=== PATIENT | male | born 1975 | race Hispanic/Latino ===

== ENCOUNTER 2019-11-10 09:15 | Inpatient (IN) | payer SELFPAY ==
[~2019-11-10] VITALS: Ht 157.5 cm; Wt 63.6 kg
[2019-11-10] VITALS (7 sets, daily range): BP systolic 98–117; BP diastolic 54–67
--- NOTE | 2019-11-10 09:39 | NUR ---
PATIENT TO ROOM VIA WHEELCHIAR.
--- NOTE | 2019-11-10 10:29 | NUR ---
IV INITATIED AND LABS COLLECTED. PT TOLERATED WELL. LAB AT BEDSIDE TO DRAW FOR 2ND BC.
[2019-11-10 10:48] LABS: HEMATOCRIT 41.8 % (39.0-50.0); HEMOGLOBIN 13.9 g/dl (14.0-18.0); IMMATURE GRANULOCYTES 0.5 % (0.0-5.0); MEAN CELL VOLUME 89.3 fL CALC (80.0-100.0); MEAN CORPUSCULAR HGB 29.7 pG CALC (26.0-32.0); MEAN CORPUSCULAR HGB CONC 33.3 g/dL CAL (32.0-36.0); NEUT# 15.86 thou/uL (1.82-7.42); RED BLOOD COUNT 4.68 mill/uL (4.70-6.10); RED CELL DISTRI WIDTH 12.7 % (11.5-15.5)
--- NOTE | 2019-11-10 11:00 | NUR ---
PATIENT AWARE OF PLAN FOR CT SCAN AND WAIT TIME. IV FLUIDS AND ABX INFUSING. CALL VASYL CARRILLO. VSS.
[2019-11-10 11:16] LABS: ALBUMIN 4.3 g/dL (3.2-5.0); ALKALINE PHOSPHATASE 139 u/l (38-126); ANION GAP 15 (6-22 (CALC)); BILIRUBIN, TOTAL 1.3 mg/dL (0.0-1.4); BUN 8 mg/dL (9-20); BUN/CREATININE RATIO 17 (12-20 (CALC)); CARBON DIOXIDE 27 mmol/l (22-30); CHLORIDE 93 mmol/l (95-108); CREATININE 0.5 mg/dL (0.7-1.3); GFR > 60 ML/MIN (>=60 (CALC)); GFR FOR AFR.AMER. > 60 ML/MIN (>=60 (CALC)); SGOT/AST 18 u/l (17-59); SODIUM 130 mmol/l (137-146); TOTAL PROTEIN 7.7 g/dL (6.3-8.2)
--- NOTE | 2019-11-10 12:45 | NUR ---
PT RESTING IN STRETCHER IN NAD AND DENIES ANY NEEDS AT THIS TIME. IV VANCO INFUSING WITH NO DIFFICULTY.
--- NOTE | 2019-11-10 13:11 | NUR ---
MD AT BEDSIDE TO DISCUSS RESULTS AND PLAN FOR ADMISSION.
--- NOTE | 2019-11-10 13:40 | NUR ---
Dr Merida at bedside to examine pt
--- NOTE | 2019-11-10 14:00 | NUR ---
TEMP RECHECK 99.3.
--- NOTE | 2019-11-10 14:10 | NUR ---
MARIVEL THORNTON FROM OR AT BEDSIDE. PT REPORT GIVEN.
--- NOTE | 2019-11-10 14:30 | NUR ---
PT ARRIVED TO THE MED/SURG FROM THE PACU VIA STRETCHER. GOT REPORT FROM CAROL ORTA. PT SELF AMBULATED TO BED FROM STRETCHER. V/S ASSESSED PT INSTRUCTED TO CALL SYSTEM, LIGHTS BED AND IV. URINAL AT BEDSIDE,BUT PT INSTRUCTED TO CALL PRIOR TO AMBULATING IF HE NEEDS TO GET UP. PT VERBALIZED THROUGH COMMUNICATIONS SCIENTIST THAT HE UNDERSTOOD. PT ASSESSMENT COMPLETE. PT IS ALERT AND ORIENTED. LUNGS CLEAR. TEMPERATURE REPORTED AT102.2 F EARLIER IN THE ER AND RECEIVED IV TYLENOL. PT REASSESSED AND AFEBRILE AT 98.5. RECTAL WOUND REINFORCED WITH ABD PAD. MO RESTING COMFORTABLE. WILL CONTINUE TO MONITOR.
--- NOTE | 2019-11-10 14:50 | NUR ---
PATIENT REPORT TO MARIVEL RIVERA.
--- NOTE | 2019-11-10 19:25 | NUR ---
RECIEVED REPORT FROM MARIVEL RIVERA. PT RESTING IN SEMI FOWLERS POSITION UPON ENTERING ROOM. INTRODUCED SLEF TO PT AND DISCUSSED POC. PT IS SWAZI SPEAKING ONLY. RESPIRATIONS ARE EVEN AND UNLABORED WITH NO SIGNS OF DISTRESS. PT DENIES ANY PAIN OR DISCOMFORTS AT THIS TIME.ALL SAFETY PRECAUTIONS ARE IN PLACE WITH CALL LIGHT IN REACH. WILL CONTINUE TO MONITOR
[2019-11-11] VITALS (10 sets, daily range): BP systolic 90–113; BP diastolic 46–68
--- NOTE | 2019-11-11 00:38 | NUR ---
PT RESTING IN BED WITH EYES CLOSED. NO APPARENT DISTRESS NOTED. PT WAKES EASILY, DENIES ANY PAIN OR DISCOMFORT AT THIS TIME. CALL LIGHT WITHIN REACH. WILL CONTINUE TO MONITOR.
--- NOTE | 2019-11-11 04:38 | NUR ---
PT RESTING IN BED. NO APPARENT DISTRESS NOTED. IVF INFUSING WITHOUT DIFFICULTY. PT DENIES ANY PAIN OR DISCOMFORT. CALL LIGHT WITHIN REACH. WILL CONTINUE TO MONITOR.
[2019-11-11 05:39] LABS: IMMATURE GRANULOCYTES 0.6 % (0.0-5.0); MEAN CELL VOLUME 92.1 fL CALC (80.0-100.0); MEAN CORPUSCULAR HGB 30.1 pG CALC (26.0-32.0); MEAN CORPUSCULAR HGB CONC 32.6 g/dL CAL (32.0-36.0); NEUT# 11.34 thou/uL (1.82-7.42); RED BLOOD COUNT 3.56 mill/uL (4.70-6.10); RED CELL DISTRI WIDTH 13.1 % (11.5-15.5)
[2019-11-11 05:55] LABS: HEMATOCRIT 32.8 % (39.0-50.0); HEMOGLOBIN 10.7 g/dl (14.0-18.0)
--- NOTE | 2019-11-11 07:25 | NUR ---
PT LAYING IN BED. A&O X3. NO DISTRESS NOTED. PT DENIES ANY CURRENT PAIN AT THIS TIME. ABD PAD SURROUNDING PERIANAL WOUND CDI WITH NO SHADOWING PRESENT. EXPLAINED TO PT THAT HE WAS SCHEDULED TO GO DOWN TO OR TO HAVE WOUND CLEANED. PT VERBALIZED UNDERSTANDING. OR CONSENT OBTAINED. IS DEVICE AT BEDSIDE. PT DEMONSTRATING PROPER USE OF DEVICE. GOAL SET AT 2500 PT CURRENTLY ACHIEVING 2000. SCDS IN PLACE. PT SLIGHTLY HYPOTENSIVE BUT ASYMPTOMATIC AT THIS TIME. ASSESSMENT COMPLETED. DISCUSSED POC. CALL LIGHT IN REACH. CONTINUE TO MONITOR.
--- NOTE | 2019-11-11 09:42 | NUR ---
PT TAKEN VIA STRETCHER TO OR ACCOMPANIED BY JORDAN ORTA. PT IN STABLE CONDITION.
--- NOTE | 2019-11-11 12:00 | NUR ---
PT ARRIVED TO PA VIA STRETCHER ACCOMPANIED BY FRANSISCA ORTA. A&O X3. NO DISTRESS NOTED. PT REPORTS PAIN IN PERIANAL AREA. WOUND VAC IN PLACE SET AT 125 MM HG CONTINUOUS WITH SANGUINEOUS DRAINAGE NOTED TO WOUND VAC COLLECTION CHAMBER. PT ENCOURAGED TO NOT LAY ON SIDE TO ASSIST WITH THE PROPER FUNCTION OF THE WOUND VAC, PT VERBALIZED UNDERSTANDING. SCDS BILATERALLY IN PLACE. CALL LIGHT IN REACH. CONTINUE TO MONITOR.
--- NOTE | 2019-11-11 13:52 | NUR ---
PT LAYING IN BED. NO DISTRESS NOTED, NO NEEDS AT THIS TIME. CALL LIGHT IN REACH. CONTINUE TO MONITOR.
--- NOTE | 2019-11-11 16:15 | NUR ---
AFTER MULTIPLE FAILED ATTEMPTS TO MAINTAIN PROPER WOUND VAC SEAL, WOUND VAC REMOVED PER DR LACY'S WRITEN ORDERS. LESS THAN 50 CC OUT OUTPUT NOTED TO WOUND VAC COLLECTION CHAMPER. WOUNDS PACKED WITH GAUZE AND SECURED WITH ABD PAD AND MESH UNDERWEAR.PT TOLERATED WELL. ASSISTED PT TO COMFORTABLE POSITION. CALL LIGHT IN REACH. CONTINUE TO MONITOR.
--- NOTE | 2019-11-11 19:10 | NUR ---
REPORT FROM MAGDALENA RN. PT NOTED RESTING IN BED, WAKES EASILY. PT DENIES ANY PAIN OR DISCOMFORT. CRYSTAL VP CLINICAL TO TRANSLATE. PT WANTING TO KNOW WHEN HE CAN GO HOME, EDUCATED PT ON NEED FOR DRESSING CHANGES AND ABT THERAPY. DISCUSSED POC. PT VERBALIZED UNDERSTANDING. PT DENIES ANY CURRENT WANTS OR NEEDS. DRESSING CDI. CALL LIGHT WITHIN REACH. WILL CONTINUE TO MONITOR.
--- NOTE | 2019-11-11 23:56 | NUR ---
PT MEDICATED FOR PAIN AND REPOSITIONED. ICE PACK PROVIDED. DRESSING REMAINS CDI. IVF INFUSING WITHOUT DIFFICULTY. PT DENIES ANY OTHER WANTS OR NEEDS. CALL LIGHT WITHIN REACH. WILL CONTINUE TO MONITOR.
--- NOTE | 2019-11-12 03:03 | NUR ---
PT RESTING IN BED WITH EYES CLOSED. NO APPARENT DISTRESS NOTED. RESPIRATIONS EVEN AND UNLABORED. CALL LIGHT WITHIN REACH. WILL CONTINUE TO MONITOR.
[2019-11-12 05:08] VITALS: BP 102/60
--- NOTE | 2019-11-12 05:14 | NUR ---
PT MEDICATED FOR PAIN UPON REQUEST. DRESSING SATURATED WITH COPIOUS AMOUNT SEROUS DRAINAGE. DRESSING CHANGE PER ORDER. PT TOLERATED WELL. ICE PACK PROVIDED AT THIS TIME. NO APPARENT DISTRESS NOTED. PT DENIES ANY OTHER WANTS OR NEEDS. CALL LIGHT WITHIN REACH. WILL CONTINUE TO MONITOR.
[2019-11-12 07:40] VITALS: BP 113/68
--- NOTE | 2019-11-12 07:40 | NUR ---
PT SITTING IN BED. A&O X3. NO DISTRESS NOTED. NO PAIN REPORTED AT THIS TIME. DRESSING TO INTERGLUTEAL CLEFT IN PLACE WITH SLIGHT SHADOWING NOTED. IS DEVICE AT BEDSIDE WITH GOAL REMAINING AT 2500, PT ACHIEVING 2000. NO OTHER NEEDS AT THIS TIME. ASSESSMENT COMPLETED. DISCUSSED POC. CALL LIGHT IN REACH. CONTINUE TO MONITOR.
[2019-11-12 11:08] VITALS: BP 118/87
--- NOTE | 2019-11-12 11:18 | NUR ---
DR LACY AT BEDSIDE COMPLETING DRESSING CHANGE
--- NOTE | 2019-11-12 12:05 | NUR ---
PT SITTING IN BED. NO DISTRESS OR NEEDS AT THIS TIME. CALL LIGHT IN REACH. CONTINUE TO MONITOR.
[2019-11-12 15:15] VITALS: BP 143/83
--- NOTE | 2019-11-12 17:34 | NUR ---
PT LAYING IN BED. NO DISTRESS OR NEEDS AT THIS TIME. DRESSING CDI. CALL LIGHT IN REACH. CONTINUE TO MONITOR.
--- NOTE | 2019-11-12 19:03 | NUR ---
REPORT FROM MAGDALENA ORTA. PT NOTED RESTING IN BED. NO APPARENT DISTRESS NOTED. PT C/O PAIN IN PERIANAL AREA. MEDICATED AT THIS TIME AND ICE PACK PROVIDED. PT ENCOURAGED TO REPOSITION SELF IN BED WELL. DRESSING TO BUTTOCKS, CDI. IV SITE APPEARS HEALTHY. DISCUSSED POC AND NPO AFTER MIDNIGHT. PT VERBALIZED UNDERSTANDING. PT DENIES ANY OTHER WANTS OR NEEDS. CALL LIGHT WITHIN REACH. WILL CONTINUE TO MONITOR.
[2019-11-12 19:28] VITALS: BP 142/62
--- NOTE | 2019-11-12 20:56 | NUR ---
PT CONTINUES TO C/O PAIN IN PERIANAL AREA. MEDICATED WITH PRN PERCOCET AT THIS TIME. PT REPOSITIONED SELF IN BED. DRESSING REMAINS CDI. FRESH WATER PROVIDED. NO OTHER WANTS OR NEEDS. CALL LIGHT WITHIN REACH. WILL CONTINUE TO MONITOR.
--- NOTE | 2019-11-12 23:48 | NUR ---
PT MEDICATED FOR PAIN IN PERIANAL AREA 12/29. ICE PACKS PROVIDED. PT REPOSITIONED SELF. DENIES ANY OTHER WANTS OR NEEDS. CALL LIGHT WITHIN REACH. WILL CONTINUE TO MONITOR.
[2019-11-13] VITALS (10 sets, daily range): BP systolic 112–139; BP diastolic 60–82
[2019-11-13 05:43] LABS: HEMATOCRIT 32.8 % (39.0-50.0); HEMOGLOBIN 10.8 g/dl (14.0-18.0); IMMATURE GRANULOCYTES 0.6 % (0.0-5.0); MEAN CELL VOLUME 89.9 fL CALC (80.0-100.0); MEAN CORPUSCULAR HGB 29.6 pG CALC (26.0-32.0); MEAN CORPUSCULAR HGB CONC 32.9 g/dL CAL (32.0-36.0); NEUT# 6.07 thou/uL (1.82-7.42); RED BLOOD COUNT 3.65 mill/uL (4.70-6.10); RED CELL DISTRI WIDTH 12.6 % (11.5-15.5)
--- NOTE | 2019-11-13 06:16 | NUR ---
PT MEDICATED FOR PAIN. DRESSING CHANGED PER ORDER. PT C/O LARGE AMOUNTS OR PAIN WITH DRESSING CHANGE EVEN WITH MEDICATION PRIOR. ICE PACK PROVIDED AND REPOSITIONED FOR COMFORT AT THIS TIME. PACKING REMOVED NOTED TO HAVE FOUL ODOR WITH PURULENT DRAINAGE. MODERATE AMOUNT OF DRAINAGE NOTED TO ABD PAD. PT DENIES ANY CURRENT WANTS OR NEEDS. IVF INFUSING WITHOUT DIFFICULTY. PT REMAINS NPO. CALL LIGHT WITHIN REACH. WILL CONTINUE TO MONITOR.
--- NOTE | 2019-11-13 07:15 | NUR ---
PT LAYING IN BED. A&O X3. NO DISTRESS NOTED. PT DENIES ANY CURRENT PAIN AT THIS TIME. DRESSING CDI NO SHADOWING PRESENT. BILATERAL SCDS IN PLACE. IS DEVICE AT BEDSIDE, GOAL CONTINUES TO BE AT 2500, PT ACHIEVING 2000. ASSESSMENT COMPLETED. DISCUSSED POC. CALL LIGHT IN REACH. CONTINUE TO MONITOR.
--- NOTE | 2019-11-13 08:00 | NUR ---
PT note Patient is screened for PT intervention and no needs are identified at this time
--- NOTE | 2019-11-13 08:39 | NUR ---
OR CONSENT OBTAINED
--- NOTE | 2019-11-13 12:38 | NUR ---
PT TAKEN VIA STRETCHER TO OR ACCOMPANIED BY ERROL ORTA. PT IN STABLE CONDITION
--- NOTE | 2019-11-13 17:13 | NUR ---
PT DENIES ANY PAIN AT THIS TIME. CALL LIGHT IN REACH. CONTIUE TO MONITOR.
--- NOTE | 2019-11-13 19:00 | NUR ---
REPORT RECIEVED FROM Cha CHAVEZ RN, CARE OF PT ASSUMED AT THIS TIME.
--- NOTE | 2019-11-13 19:50 | NUR ---
PT C/O THROBBING PAIN TO RANDY-RECTAL SURGICAL SITE, 09/28. MEDICATED WITH PRN DILAUDID AND ZOFRAN, SEE E-MAR. PHYSICAL ASSESMENT COMPLETE. DRESSING TO RANDY-RECTAL SITE IS CLEAN/DRY/INTACT. 900ML CLEAR YELLOW URINE EMPTIED FROM URINAL. TV DINNER TRAY PROVIDED PER PTS REQUEST. PT DENIES FURTHER NEEDS. PLAN OF CARE REVIEWED. PT VERBALIZES UNDERSTANDING AND DENIES QUESTIONS. CALL [place] WITHIN REACH, AGREES TO CALL PRN.
--- NOTE | 2019-11-13 23:30 | NUR ---
ADMINISTERED PRN DILAUDID FOR C/O THROBBING PAIN TO RANDY-RECTAL SURGICAL SITE. SEE E-MAR. EMPTIED 400ML CLEAR YELLOW URNINE FROM URINAL. PT DENIES FURTHER NEEDS AT THIS TIME. CALL [place] WITHIN REACH, AGREES TO CALL PRN.
[2019-11-14] VITALS (11 sets, daily range): BP systolic 105–144; BP diastolic 48–85
--- NOTE | 2019-11-14 04:35 | NUR ---
PRE-MEDICATED WITH PERCOCET, THEN DILAUDID, SEE E-MAR. OLD DRESSING/PACKING SATURATED WITH SALINE FOR COMFORT AND GENTLY REMOVED. REMOVAL OF PACKING CAUSES NEW BLEEDING. MODERATE AMOUNT BLOODY DRAINAGE NOTED. 75" OF 1" GAUZE ROLL LIGHLTY DAMPENED WITH STERILE SALINE PACKED INTO WOUND ON RIGHT BUTTOCK. X1 4X4 GAUZE LIGHTLY DAMPENED WITH STERILE SALINE AND FLUFFED PACKED INTO LEFT WOUND ON BUTTOCK. X3 ABD PADS PLACED OVERTOP FOR DRAINAGE MANAGMENT AND SECURED BY MESH BRIEF. ICE PACK APPLIED X20 MINUTES FOR COMFORT. PT TOLERATED DRESSING, REPORTS DRESSING IS VERY PAINFUL.
--- NOTE | 2019-11-14 06:10 | NUR ---
PTS DRESSING NOTED TO HAVE A LARGE AMOUNT OF SANGUIONOUS DRAINAGE AND CLOTS. SATURATED ABD PADS REMOVED. THIN STREAM OF BLOOD BEGINS TO SHOOT OUT ONTO BED. PRESSURE IMMEDIATELY APPLIED. ASSIST CALLED. SCIENTIFIC INFORMATICS ANALYST Danyel LAWLER RN IN AND HOLDS PRESSURE. DR. WHITMAN CALLED AND INFORMED OF ACTIVE BLEEDING. ORDER IS TO KEEP NPO. PT HAS NOT EATEN SINCE DINNER. REPORTS NO DRINKING SINCE ABOUT MIDNIGHT. DR. LACY CALLS Danyel LAWLER RN TO SCHEDULE PT FOR OR. BULKY PRESSUREDRESSING APPLIED. BLEEDING SEEMS TO HAVE SLOWED WITH APPLIED PRESSURE. ICE PACK APPLIED. EBL APPROX 350ML. PT ABLE TO PARTICIPATE IN CARE. NO DISTRESS. REPORTS SOME DISCOMFORT.
[2019-11-14 06:43] LABS: HEMATOCRIT 32.8 % (39.0-50.0); HEMOGLOBIN 10.8 g/dl (14.0-18.0); IMMATURE GRANULOCYTES 0.7 % (0.0-5.0); MEAN CELL VOLUME 88.9 fL CALC (80.0-100.0); MEAN CORPUSCULAR HGB 29.3 pG CALC (26.0-32.0); MEAN CORPUSCULAR HGB CONC 32.9 g/dL CAL (32.0-36.0); NEUT# 5.57 thou/uL (1.82-7.42); RED BLOOD COUNT 3.69 mill/uL (4.70-6.10); RED CELL DISTRI WIDTH 12.4 % (11.5-15.5)
--- NOTE | 2019-11-14 06:45 | NUR ---
PT DOWN TO OR ON STRETCHER.
--- NOTE | 2019-11-14 07:00 | NUR ---
REPORT RECEIVED FROM MARIVEL CONKLIN;PT CURRENTLY IN OR AT THIS TIME.
--- NOTE | 2019-11-14 08:29 | NUR ---
PT ARRIVED BACK TO MED/SURG ROOM 274 IN STABLE CONDITION VIA STRETCHER ACCOMPANIED BY SAMANTHARN;BEDSIDE REPORT RECEIVED AT THIS TIME;VS OBTAINED BY CHARU CARNEY;PT A&O X3, ORIENTED TO ROOM AND CALL LIGHT SYSTEM;PT DENIES ANY CURRENT PAIN,PAIN SCALE AND REPORTING EDUCATED;RESPIRATIONS EVEN AND UNLABORED ON RA,CLEAR LUNG SOUNDS;I.S. AT BEDSIDE AND PT EDUCATED ON USE 10X PER HOUR;ABDOMEN DISTENDED/SOFT ON PALPATION AND HYPOACTIVE IN ALL 4 QUADRANTS;DRESSING TO RECTUM,CDI AT THIS TIME WITH MESS PANTIES IN PLACE;STRONG PEDAL PULSES,SCD'S NOTED;#18G TO RAC FLUSHED AND PATENT,NEW DRESSING APPLIED AT THIS TIME;WATER PROVIDED PER REQUEST;PT DENIES ANY ADDITIONAL NEEDS AT THIS TIME;ENCOURAGED TO CALL FOR ASSISTANCE IF NEEDED;FALL PRECAUTIONS IN PLACE WITH BED IN THE LOWEST POSITION AND CALL LIGHT IN REACH;WILL CONTINUE TO MONITOR
--- NOTE | 2019-11-14 10:00 | NUR ---
ACCUCHECK OF 338 OBTAINED, PT COVERED WITH NOVOLIN 10 UNITS PER ORDER.TOM JACKSON TRANSLATED EDUCATION OF INSULIN AND ACCUCHECKS TO PT WHO VERBALIZED UNDERSTANDING;WILL CONTINUE TO MONITOR
--- NOTE | 2019-11-14 11:35 | NUR ---
PT RESTING IN SEMI FOWLERS POSITION;RESPIRATIONS REMAIN EVEN AND UNLABOED ON RA;PT DENIES ANY CURRENT PAIN OR DISCOMFORTS;IV ABX STARTED AT THIS TIME;ACCUCHECK 300, PT COVERED WITH SLIDING SCALE NOVOLOG PER ORDER;DRESSING TO RECTUM REMAINS CDI;ASSESSMENT REMAINS UNCHANGED AT THIS TIME;ENCOURAGED TO CALL FOR ASSISTANCE IF NEEDED;CALL LIGHT IN REACH;WILL CONTINUE TO MONITOR
--- NOTE | 2019-11-14 15:45 | NUR ---
PT RESTING IN SEMI FOWLERS POSITION;RESPIRATIONS EVEN AND UNLABORED ON RA;PT DENIES ANY CURRENT PAIN OR DISCOMFORTS;TELE MONITORING IN PLACE;IV SITE PATENT;TRANSLATION PROVIDED BY MARIVEL NICHOLS;PT DENIES ANY ADDITIONAL NEEDS AND IS ENCOURAGED TO CALL FOR ASSISTANCE IF NEEDED;CALL LIGHT IN REACH;WILL CONTINUE TO MONITOR
--- NOTE | 2019-11-14 18:12 | NUR ---
PT RESTING IN SEMI FOWLERS POSITION;RESPIRATIONS EVEN AND UNLABORED ON RA;PT REPORTS MINIMAL PAIN AT THIS TIME,PT MEDICATED WITH PRN DILAUDID 1MG IVP PRIOR TO DRESSING CHANGE,ABX ALSO HUNG AT THIS TIME;DRESSING REMOVED TO RECTAL AREA WITH MODERATE AMOUNT OF LIGHT BLOOD TINGED DRAINAGE, SITE CLEANSED WITH SALINE AND MOIST/DRY DRESSING APPLIED AND ENFORCED WITH ABD PADS;PT TOLERATED DRESSING CHANGE WELL REPORTING MINIMAL PAIN THROUGHOUT PROCESS;PT RE-POSITIONED IN BED FOR COMFORT;PT DENIES ANY ADDITIONAL NEEDS;WILL CONTINUE TO MONITOR
--- NOTE | 2019-11-14 20:55 | NUR ---
PT RESTING IN BED, NO SIGNS OF DISTRESS NOTED, RESP EVEN AND UNLABORED. PT ALERT AND ORIENTED X3, DISCUSSED POC, PT GABONESE SPEAKING ONLY, AUTOMOTIVE QUALITY ENGINEER SPEAKS GABONESE. PT C/O PAIN MEDICATED PER MAR, DISCUSSED INSULIN, EDUCATED ON WOUND HEALING AND DIABETES, DRESSING TO BUTTOCK CDI, ASSESSMENT COMPLETED, CALL LIGHT IN REACH,CONTINUE TO MONITOR.
[2019-11-15 00:10] VITALS: BP 92/45
--- NOTE | 2019-11-15 00:26 | NUR ---
PT RESTING IN BED, NO SIGNS OF DISTRESS NOTED, PT DISCUSSED DRESSING CHANGE, PT AGREES. DRESSING CHANGE COMPLETED PT TOLERATED WELL. CALL LIGHT IN REACH,CONTINUE TO MONITOR.
[2019-11-15 03:35] VITALS: BP 108/63
--- NOTE | 2019-11-15 05:00 | NUR ---
PT RESTING IN BED, LINENS CHANGED. PT C/O PAIN, MEDICATED PER MAY. CALL LIGHT IN REACH,CONTINUE TO MONITOR.
[2019-11-15 05:04] LABS: HEMOGLOBIN 9.8 g/dl (14.0-18.0); MEAN CELL VOLUME 90.1 fL CALC (80.0-100.0); MEAN CORPUSCULAR HGB 29.4 pG CALC (26.0-32.0); MEAN CORPUSCULAR HGB CONC 32.7 g/dL CAL (32.0-36.0); RED BLOOD COUNT 3.33 mill/uL (4.70-6.10); RED CELL DISTRI WIDTH 12.6 % (11.5-15.5)
[2019-11-15 05:46] LABS: ANION GAP 11 (6-22 (CALC)); BUN 9 mg/dL (9-20); BUN/CREATININE RATIO 15 (12-20 (CALC)); CARBON DIOXIDE 29 mmol/l (22-30); CHLORIDE 99 mmol/l (95-108); CREATININE 0.6 mg/dL (0.7-1.3); GFR > 60 ML/MIN (>=60 (CALC)); GFR FOR AFR.AMER. > 60 ML/MIN (>=60 (CALC)); MAGNESIUM 2.2 mg/dL (1.6-2.3); POTASSIUM 3.7 mmol/l (3.5-5.1); SODIUM 136 mmol/l (137-146)
--- NOTE | 2019-11-15 07:00 | NUR ---
REPORT RECEIVED FROM HELLEN PINA;PT APPEARS TO BE SLEEPING IN SEMI FOWLERS POSITION;RESPIRATIONS EVEN AND UNLABORED ON RA;NO S/S OF DISTRESS NOTED;ALL SAFETY PRECAUTIONS IN PLACE WITH BED IN THE LOWEST POSITION AND CALL LIGHT IN REACH;WILL CONTINUE TO MONITOR
[2019-11-15 07:49] VITALS: BP 109/63
--- NOTE | 2019-11-15 07:50 | NUR ---
PT RESTING IN SEMI FOWLERS POSITION,A&O X3;VS OBTAINED AND ASSESSMENT COMPLETED;PT REPORTS MINIMAL PAIN TO PERIRECTAL AREA RATING 3/10 ON THE PAIN SCALE, PAIN SCALE AND REPORTING EDUCATED;PT WAS MEDICATED AT THIS TIME WITH DILAUDID 1MG IVP TO ASSIST IN DRESSING CHANGE;RESPIRATIONS EVEN AND UNLABORED ON RA,CLEAR LUNG SOUNDS;I.S. AT BEDSIDE AND PT RE-EDUCATED ON USE VERBALIZING UNDERSTANDING;ABDOMEN DISTENDED/SOFT ON PALPATION AND ACTIVE IN ALL 4 QUADRANTS, LAST BM 11/09/19 AND ALONSO ANRP WAS NOTIFIED;STRONG PEDAL PULSES;DRESSING TO RANDY RECTAL AREA REMOVED AT THIS TIME, MODERATE AMOUNT OF BLOOD NOTED TO PACKING,SITE CLEANSED WITH SALINE AND MOIST/DRY PACKING RE-APPLIED;PT TOLERATED WELL;#18G TO LAC FLUSHED AND PATENT,SITE APPEARS HEALTHY;ACCUCHECK 213, PT COVERED WITH SLIDING SCALE NOVOLOG PER ORDER;PT MADELINE ANY ADDITIONAL NEEDS AND IS ENCOURAGED TO CALL FOR ASSISTANCE IF NEEDED;FALL PRECAUTIONS IN PLACE WITH CALL LIGHT IN REACH;WILL CONTINUE TO MONITOR
[2019-11-15] MEDS ORDERED: METFORMIN500 M2 PO (10:45)
[2019-11-15] MEDS ORDERED: JARDIANCE10 MG PO (10:45)
--- NOTE | 2019-11-15 11:30 | NUR ---
PT RESTING IN SEMI FOWLERS POSITION;RESPIRATIONS EVEN AND UNLABORED ON RA;PT DENIES ANY CURRENT PAIN OR NEEDS;ACCUCHECK 233, PT COVERED WITH SLIDING SCALE NOVOLOG PER ORDER;NEW #22G TO LFA STARTED AT THIS TIME ON 1ST ATTEMPT BY THIS WRITTER,PT TOLERATED WELL AND ABX STARTED PER ORDER;#18G TO RAC REMOVED WITH CATHETER INTACT DUE TO EXPIRATION;DRESSING TO RANDY RECTAL AREA REMAINS CDI;PT MEDICATED WITH COLACE AND MOM TO ASSIST IN BOWEL CARE,LAST BM 11/09/19;PT DENIES ANY ADDITIONAL NEEDS AT THIS TIME AND IS ENOCURAGED TO CALL FOR ASSISTANCE IF NEEDED;CALL LIGHT IN REACH;WILL CONTINUE TO MONITOR
[2019-11-15 15:23] VITALS: BP 116/77
--- NOTE | 2019-11-15 16:20 | NUR ---
PT RESTING IN SEMI FOWLERS POSITION;RESPIRATIONS REMAIN EVEN AND UNLABORED ON RA;PT REPORTS RANDY RECTAL PAIN RATING 4/10 ON THE PAIN SCALE AND WAS MEDICATED WITH PRN DILAUDID 0.5MG IVP PRIOR TO DRESSING CHANGE;IV SITE PATENT;RANDY RECTAL DRESSING REMOVED WITH SMALL AMOUNT OF BLOOD TINGED DRAINAGE NOTED,SITE CLEANSED WITH SALINE AND MOIST/DRY DRESSING RE-APPLIED PER ORDER;PT TOLERATED WOUND CARE WELL;ACCUCHECK 261, PT COVERED WITH SLIDING SCALE NOVOLOG PER ORDER;TRANSLATION PROVIDED BY STACEY OR SANJEEV;PT DENIES ANY ADDITIONAL NEEDS AT THIS TIME AND IS ENCOURAGED TO CALL FOR ASSISTANCE IF NEEDED;CALL LIGHT IN REACH;WILL CONTINUE TO MONITOR
--- NOTE | 2019-11-15 17:35 | NUR ---
PT REPORTS RANDY RECTAL PAIN RATING 6/10 ON THE PAIN SCALE AND REQUESTS PAIN MEDICATION,PT MEDICATED WITH PRN PEROCET 5/325MG PO AT THIS TIME;WILL MONITOR FOR EFFECTIVENESS
[2019-11-15 19:00] VITALS: BP 112/53
--- NOTE | 2019-11-15 19:05 | NUR ---
REPORT FROM ABELARDO MACEDO. PT NOTED RESTING IN BED. ALERT AND ORIENTED. NO APPARENT DISTRESS NOTED. PT DENIES ANY PAIN OR DISCOMFORT AT THIS TIME. IV SITE APPEARS HEALTHY. RESPIRATIONS EVEN AND UNLABORED. DRESSING TO BUTTOCKS SECURED IN PLACE WITH BRIEF, CDI. DISCUSSED POC AND DRESSING CHANGE PROCEDURE, PT VERBALIZED UNDERSTANDING. NO CURRENT WANTS OR NEEDS NOTED. CALL LIGHT WITHIN REACH. WILL CONTINUE TO MONITOR.
--- NOTE | 2019-11-15 19:08 | NUR ---
REPORT FROM ABELARDO MACEDO. PT NOTED RESTING IN BED WATCHING TV. ALERT AND ORIENTED. NO APPARENT DISTRESS NOTED. IV SITE APPEARS HEALTHY AND PATENT, FLUSHED AT THIS TIME. PT SOB WITH EXERTION AND COUGH. DISCUSSED POC. PT VERBALIZED UNDERSTANDING. PT DENIES ANY CURRENT WANTS OR NEEDS. CALL LIGHT WITHIN REACH. WILL CONTINUE TO MONITOR.
--- NOTE | 2019-11-15 21:17 | NUR ---
PT MEDICATED FOR PERIANAL PAIN WITH IV DILAUDID. NO APPARENT DISTRESS NOTED. RESPIRATIONS EVEN AND UNLABORED. PT RESTING ON LEFT SIDE. DRESSING SECURED WITH BRIEF, CDI. PT DENIES ANY OTHER CURRENT WANTS OR NEEDS. DIABETIC SNACK PROVIDED AT THIS TIME. CALL LIGHT WITHIN REACH. WILL CONTINUE TO MONITOR.
--- NOTE | 2019-11-16 00:20 | NUR ---
PT C/O SMALL AMOUNT OF PAIN AT THIS TIME. MEDICATED FOR PAIN PRIOR TO DRESSING CHANGE. PT DENIES ANY CURRENT WANTS OR NEEDS. CALL LIGHT WITHIN REACH. WILL CONTINUE TO MONITOR.
--- NOTE | 2019-11-16 00:49 | NUR ---
DRESSING CHANGED PER ORDER. PT TOLERATED WELL. BEFORE AND AFTER SCHOOL DAYCARE WORKER CASSIE TO TRANSLATE. DRESSING SECURED WITH BRIEF. REPOSITIONED FOR COMFORT. PT DENIES ANY CURRENT PAIN OR DISCOMFORT. CALL LIGHT WITHIN REACH. WILL CONTINUE TO MONITOR.
--- NOTE | 2019-11-16 04:08 | NUR ---
PT RESTING IN BED WITH EYES CLOSED. NO APPARENT DISTRESS NOTED. RESPIRATIONS EVEN AND UNLABORED. CALL LIGHT WITHIN REACH. WILL CONTINUE TO MONITOR.
[2019-11-16 04:54] VITALS: BP 122/86
--- NOTE | 2019-11-16 07:00 | NUR ---
REPORT RECEIVED FROM HELLEN PEREZ;PT APPEARS TO BE SLEEPING IN SEMI FOWLERS POSITION;RESPIRATIONS EVEN AND UNLABORED ON RA;NO S/S OF DISTRESS NOTED;ALL SAFETY PRECAUTIONS IN PLACE WITH BED IN THE LOWEST POSITION AND CALL LIGHT IN REACH;WILL CONTINUE TO MONITOR
--- NOTE | 2019-11-16 07:35 | NUR ---
PT RESTING IN SEMI FOWLERS POSITION,A&O X3;VS OBTAINED AND ASSESSMENT COMPLETED;PT REPORTS MINIMAL PAIN AT THIS TIME,PAIN SCALE AND REPORTING EDUCATED;PT TO BE MEDICATED WITH PRN DILAUDID 1MG IVP PRIOR TO DRESSING CHANGED;RESPIRATIONS EVEN AND UNLABORED ON RA,CLEAR LUNG SOUNDS;I.S. AT BEDSIDE AND PT EDUCATED ON USE 10X PER HOUR;ABDOMEN DISTENDED/SOFT ON PALPATION AND ACTIVE IN ALL 4 QUADRANTS,LAST BM 11/09/19;COLACE WAS PROVIDED TO ASSIST IN BOWEL CARE;STRONG PEDAL PULSES;DRESSING TO RANDY RECTAL AREA REMOVED AT THIS TIME WITH MODERATE BLOODY TINGED DRAINAGE NOTED;SITE CLEANSED WITH SALINE AND MOIST/DRY DRESSINGS APPLIED PER ORDER;#22G TO LFA FLUSHED AND PATENT,SITE APPEARS HEALTHY;ACCUCHECK 197, PT COVERED WITH SLIDING SCALE NOVOLOG PER ORDER;PT DENIES ANY ADDITIONAL NEEDS AT THIS TIME AND IS ENCOURAGED TO CALL FOR ASSISTANCE IF NEEDED;FALL PRECAUTIONS IN PLACE WITH CALL LIGHT IN REACH;WILL CONTINUE TO MONITOR
[2019-11-16 07:36] VITALS: BP 110/57
--- NOTE | 2019-11-16 09:20 | NUR ---
PT RESTING IN SEMI FOWLERS POSITION WITH CHARU JULIEN AT BEDSIDE ASSISTING IN BATH AND LINEN CHANGE;PT REPORTS LITTLE PAIN AT THIS TIME RATING 2/10 ON THE PAIN SCALE;ACCUCHECK 306;PT DENIES ANY ADDITIONAL NEEDS;CALL LIGHT IN REACH;WILL CONTINUE TO MONITOR
--- NOTE | 2019-11-16 11:00 | NUR ---
PT RESTING IN SEMI FOWLERS POSITION WATCHING TV;RESPIRATIONS EVEN AND UNLABORED ON RA;PT DENIES ANY CURRENT PAIN OR DISCOMFORTS;IV SITE PATENT AND ABX HUNG AT THIS TIME;DRESSING TO RANDY RECTAL AREA CDI;ACCUCHECK 251, PT COVERED WITH SLIDING SCALE NOVOLOG PER ORDER;MOM ADMINISTERED TO ASSIST IN BOWEL CARE;PT DENIES ANY ADDITIONAL NEEDS AT THIS TIME AND IS ENCOURAGED TO CALL FOR ASSISTANCE IF NEEDED;CALL LIGHT IN REACH;WILL CONTINUE TO MONITOR
--- NOTE | 2019-11-16 11:10 | NUR ---
SPOKE WITH JANIE, CASE MANAGEMENT AND NOTIFIED OF HOME HEALTH ORDER MUNA DISCHARGED. APPROX D/C DATE 11/17/19.
[2019-11-16 15:05] VITALS: BP 116/68
--- NOTE | 2019-11-16 16:20 | NUR ---
PT RESTING IN SEMI FOWLERS POSITION;RESPIRATIONS EVEN AND UNLABORED ON RA;PT REPORTS MINIMAL PAIN AT THIS TIME BUT MEDICATED WITH PRN DILAUDID 1MG IVP PRIOR TO DRESSING CHANGE;IV SITE PATENT;DRESSING REMOVED TO RANDY RECTAL AREA,SITE CLEANSED WITH SALINE AND MOIST/DRY DRESSING RE-APPLIED;PT TOLERATED DRESSING CHANGE WELL;PT DENIES ANY ADDITIONAL NEEDS AT THIS TIME;ENCOURAGED TO CALL FOR ASSISTANCE IF NEEDED;CALL LIGHT IN REACH;WILL CONTINUE TO MONITOR
--- NOTE | 2019-11-16 17:20 | NUR ---
PT REPORTS RANDY-RECTAL PAIN RATING 5/10 ON THE PAIN SCALE AND REQUESTS PRN PAIN MEDICATION,PT MEDICATED WITH PERCOCET 5/325MG PO AT THIS TIME;WILL CONTINUE TO MONITOR FOR EFFECTIVENESS
[2019-11-16 19:00] VITALS: BP 109/60
--- NOTE | 2019-11-16 20:29 | NUR ---
PT LAYING IN BED. A&O X3. NO DISTRESS NOTED. DRESSING CDI. PT DENIES ANY PAIN AT THIS TIME. BILATERAL SCD'S IN PLACE. IS DEVICE AT BEDSIDE, PT DEMONSTRATING PROPER USE OF DEVICE. GOAL SET AT 2500. NO OTHER NEEDS AT THIS TIME. ASSESSMENT COMPLETED. DISCUSSED POC. CALL LIGHT IN REACH. CONTINUE TO MONITOR.
--- NOTE | 2019-11-16 23:30 | NUR ---
PT PREMEDICATED WITH DILAUDID 1 MG PRIOR TO DRESSING CHANGE. PT C/O OF PAIN 7/10 AT THIS TIME.
--- NOTE | 2019-11-17 00:04 | NUR ---
DRESSING CHANGE COMPLETED. PT TOLERATED WELL.
[2019-11-17 04:10] VITALS: BP 103/68
[2019-11-17] MEDS ORDERED: PERCOCET 5/321 COMBO PO (07:34)
--- NOTE | 2019-11-17 07:35 | NUR ---
DR LACY IN TO VISIT WITH PT.
[2019-11-17 07:40] VITALS: BP 109/67
--- NOTE | 2019-11-17 07:40 | NUR ---
ASSESSMENT IS COMPLETED; IV SITE IS FREE FROM REDNESS OR EDEMA. HR IS REG,PULSES ARE STRONG X4, ABD IS SOFT WITH ACTIVE BS. BREATH SOUNDS ARE CLEAR, BILATERALLY, DRESSING ON BUTTOCK IS CDI.,MINIMAL DRAINAGE NOTED. CONTINUE TO OSBERVE AND MONITOR.
--- NOTE | 2019-11-17 09:00 | NUR ---
DRESSING REMOVED FROM PERIANANL AREA. MINIMAL DRAINAGE NOTED. PACKING REMOVED WITH BLOOD AND SERO DRAINAGE NOTED. REPLACED WITH WET GAUZE 1/2 INCH DEPTH. PLACED DRY DRESSING AND ABD PAD TO HOLD IN PLACE. PT TOLERATED WELL. USING CLEAN TECHNIQUE.
--- NOTE | 2019-11-17 12:00 | NUR ---
PT HAS BEEN RELAXING IN BED WITH NO DISTRESS NOTED. ENCOURAGED PT TO AMBULATE. IV SITE IS FREE FROM REDNESS OR EDEMA.
[2019-11-17 15:00] VITALS: BP 109/64
--- NOTE | 2019-11-17 16:00 | NUR ---
PT CONTINUES TO RELAX IN BED. DID GET UP AND WASHED UP , HAD MANUEL PACE FROM OR INTER[employer] OVER THE PHONE RE: AMBULATING AND PT TOLD HER THAT HE WAS A LITTLE DIZZY. EXPLAINED IT WAS BECAUSE OF LAYING IN BED. VERBALIZED UNDERSTANDING.
--- NOTE | 2019-11-17 17:00 | NUR ---
IV SITE DISCONITNUED [employer] INTACT. DISCHARGE INSTRUCITONS GIVEN IN CITIZEN OF [place] AND [place] WITH TEACHING MATERIAL. HAD MANUEL INTERPRET OVER THE PHONE AND INQUIRED IF ANY QUESTIONS. PT INFORMED TO COME TOMORROW AND WEDNESDAY WITH A CAB TO HAVE THE DRESSING CHANGE. ALSO NEEDS TO CALL DR LACY FOR AN APPOINTMENT AND WHEN HE MAY RETURN BACK TO WORK. VERBALIZED UNDERSTANDING. SENT DRESSING WITH PT INCASE NEEDS TO FIX. 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
--- NOTE | 2019-11-17 18:22 | NUR ---
Discharge instructions given. Patient verbalizes understanding of same. Discharged in stable condition via Wheelchair to Home with *Other. All belongings sent with pt.
== END 2019-11-17 17:10 | disposition home or self-care (01) | DRG 853 ==
LOC: ED 09:15 → ED-I 12:44 → ED 13:48 → MS2 13:49
PROVIDERS: Family Medicine; Nurse Practitioner; ADMIT Surgery; ATTEND Surgery
PROC: 0JD70ZZ Extraction of Back Subcutaneous Tissue and Fascia, Open Approach (ICD-10-PCS; principal; 2019-11-10)
PROC: 2W15X6Z Compression of Back using Pressure Dressing (ICD-10-PCS; 2019-11-11)
PROC: 0KDP0ZZ Extraction of Left Hip Muscle, Open Approach (ICD-10-PCS; 2019-11-13)
PROC: 0KDN0ZZ Extraction of Right Hip Muscle, Open Approach (ICD-10-PCS; 2019-11-13)
PROC: 0W3 Anatomical Regions, General, Control (ICD-10-PCS; 2019-11-14)
DX: A41.9 Sepsis, unspecified organism (principal); M72.6 Necrotizing fasciitis; M96.830 Postprocedural hemorrhage of a musculoskeletal structure following a musculoskeletal system procedure; E11.65 Type 2 diabetes mellitus with hyperglycemia; Y83.8 Other surgical procedures as the cause of abnormal reaction of the patient, or of later complication, without mention of misadventure at the time of the procedure; B96.1 Klebsiella pneumoniae [K. pneumoniae] as the cause of diseases classified elsewhere; Z20.828 Contact with and (suspected) exposure to other viral communicable diseases
CPT/HCPCS: C9290; J0131; Q9967

== ENCOUNTER 2019-11-25 12:13 | Emergency (ER) | payer SELFPAY ==
[~2019-11-25] VITALS: Ht 157.5 cm; Wt 68.0 kg
[~2019-11-25 12:13] MED LIST: JARDIANCE10 MG PO; METFORMIN500 M2 PO; PERCOCET 5/321 COMBO PO
[2019-11-25 13:20] VITALS: BP 131/76
== END 2019-11-25 13:20 | disposition home or self-care (01) | DRG 951 ==
LOC: ED 12:13
DX: Z48.01 Encounter for change or removal of surgical wound dressing (principal)

== ENCOUNTER 2019-11-26 10:19 | Emergency (ER) | payer SELFPAY ==
[~2019-11-26] VITALS: Ht 157.5 cm; Wt 75.0 kg
[2019-11-26 12:40] VITALS: BP 118/70
== END 2019-11-26 12:40 | disposition home or self-care (01) | DRG 951 ==
LOC: ED 10:19
DX: Z48.01 Encounter for change or removal of surgical wound dressing (principal)

== ENCOUNTER 2019-11-27 09:21 | Emergency (ER) | payer SELFPAY ==
[~2019-11-27] VITALS: Ht 157.5 cm; Wt 65.0 kg
[2019-11-27 10:05] VITALS: BP 132/77
== END 2019-11-27 10:07 | disposition home or self-care (01) | DRG 951 ==
LOC: ED 09:21
DX: Z48.01 Encounter for change or removal of surgical wound dressing (principal)

== ENCOUNTER 2019-12-20 19:50 | Emergency (ER) | payer SELFPAY ==
[~2019-12-20] VITALS: Ht 165.1 cm; Wt 77.2 kg
[2019-12-20] MEDS ORDERED: METFORMIN500 M2 PO (20:29)
[2019-12-20] MEDS ORDERED: TRIGLIDE160 MG PO (20:30)
[2019-12-20] MEDS ORDERED: GLIPIZIDE5 M2 PO (20:31)
[2019-12-20] MEDS ORDERED: BACTRIM DS1 TAB PO (21:00)
[2019-12-20] MEDS ORDERED: HYDROCO/APAP1 TA9 PO (21:00)
[2019-12-20] MEDS ORDERED: KEFLEX500 MG PO (21:00)
[2019-12-20 21:30] VITALS: BP 134/77
--- NOTE | 2019-12-22 14:33 | NUR ---
Left voicemail requesting return call to Pharmacy department concerning wound culture results.
== END 2019-12-20 21:30 | disposition home or self-care (01) | DRG 603 ==
LOC: ED 19:50
DX: L02.212 Cutaneous abscess of back [any part, except buttock and flank] (principal); B95.62 Methicillin resistant Staphylococcus aureus infection as the cause of diseases classified elsewhere

== ENCOUNTER 2020-03-09 09:15 | Emergency (ER) | payer SELFPAY ==
[~2020-03-09] VITALS: Ht 165.1 cm; Wt 72.7 kg
[~2020-03-09 09:15] MED LIST changes: +BACTRIM DS1 TAB PO; +GLIPIZIDE5 M2 PO; +HYDROCO/APAP1 TA9 PO; +KEFLEX500 MG PO; +TRIGLIDE160 MG PO
[2020-03-09 10:00] VITALS: BP 123/72
[2020-03-09] MEDS ORDERED: CLINDAMYCIN300 M1 PO (10:04)
== END 2020-03-09 10:00 | disposition home or self-care (01) | DRG 951 ==
LOC: ED 09:15
DX: Z48.01 Encounter for change or removal of surgical wound dressing (principal); E11.9 Type 2 diabetes mellitus without complications

== ENCOUNTER 2020-12-17 11:40 | Emergency (ER) | payer SELFPAY ==
[~2020-12-17] VITALS: Ht 165.1 cm; Wt 81.0 kg
[~2020-12-17 11:40] MED LIST changes: +CLINDAMYCIN300 M1 PO
[2020-12-17] MEDS ORDERED: METFORMIN500 M2 PO (14:27)
[2020-12-17 14:33] LABS: IMMATURE GRANULOCYTES 0.5 % (0.0-5.0); MEAN CELL VOLUME 90.3 fL CALC (80.0-100.0); MEAN CORPUSCULAR HGB 31.5 pG CALC (26.0-32.0); MEAN CORPUSCULAR HGB CONC 34.9 g/dL CAL (32.0-36.0); NEUT# 4.17 thou/uL (1.82-7.42); RED BLOOD COUNT 4.32 mill/uL (4.70-6.10); RED CELL DISTRI WIDTH 13.7 % (11.5-15.5)
[2020-12-17 14:39] LABS: HEMOGLOBIN 13.6 g/dl (14.0-18.0)
[2020-12-17 14:54] LABS: ALBUMIN 4.4 g/dL (3.2-5.0); ALKALINE PHOSPHATASE 121 u/l (38-126); ANION GAP 13 (6-22 (CALC)); BILIRUBIN, TOTAL 0.8 mg/dL (0.0-1.4); BUN 7 mg/dL (9-20); BUN/CREATININE RATIO 16 (12-20 (CALC)); CARBON DIOXIDE 26 mmol/l (22-30); CHLORIDE 99 mmol/l (95-108); CREATININE 0.4 mg/dL (0.7-1.3); GFR > 60 ML/MIN (>=60 (CALC)); GFR FOR AFR.AMER. > 60 ML/MIN (>=60 (CALC)); POTASSIUM 3.6 mmol/l (3.5-5.1); SGOT/AST 125 u/l (17-59); SODIUM 134 mmol/l (137-146)
[2020-12-17 16:08] LABS: URINE BILIRUBIN - DIPSTICK NEGATIVE (NEGATIVE); URINE BLOOD DIPSTICK TRACE-INTACT (NEGATIVE); URINE COLOR YELLOW; URINE GLUCOSE - DIPSTICK >=1000 mg/dL (NEGATIVE); URINE KETONE 15 mg/dL (NEGATIVE); URINE LEUK ESTERASE NEGATIVE (NEGATIVE); URINE PROTEIN - DIPSTICK NEGATIVE (NEG-TRACE); URINE SPECIFIC GRAVITY 1.015; URINE UROBILINOGEN - DIPSTICK 0.2 E.U./dL (0.2)
[2020-12-17 16:09] LABS: URINE NITRITE - DIPSTICK NEGATIVE (Negative)
[2020-12-17] MEDS ORDERED: CLINDAMYCIN300 M1 PO (16:19)
[2020-12-17 17:20] VITALS: BP 160/97
== END 2020-12-17 17:38 | disposition home or self-care (01) | DRG 603 ==
LOC: ED 11:40
PROVIDERS: Physician Assistant Surgical
DX: L03.90 Cellulitis, unspecified (principal); E11.9 Type 2 diabetes mellitus without complications; Z79.84 Long term (current) use of oral hypoglycemic drugs
CPT/HCPCS: Q9967

== ENCOUNTER 2022-09-23 12:34 | Emergency (ER) | payer SELFPAY ==
[~2022-09-23] VITALS: Ht 165.1 cm; Wt 63.5 kg
[2022-09-23] MEDS ORDERED: BACTRIM DS1 TAB PO (13:41)
[2022-09-23 13:47] VITALS: BP 127/86
== END 2022-09-23 13:58 | disposition home or self-care (01) | DRG 603 ==
LOC: ED 12:34
DX: L02.31 Cutaneous abscess of buttock (principal); E11.9 Type 2 diabetes mellitus without complications; Z79.84 Long term (current) use of oral hypoglycemic drugs

== ENCOUNTER 2023-10-23 15:29 | Emergency (ER) | payer SELFPAY ==
[~2023-10-23] VITALS: Ht 165.1 cm; Wt 79.3 kg
[~2023-10-23 15:29] MED LIST changes: +PIOGLITAZONE HC45 MG PO
[2023-10-23 15:40] VITALS: BP 129/89
[2023-10-23 15:45] VITALS: BP 121/92
[2023-10-23 16:00] VITALS: BP 117/86
[2023-10-23 16:15] VITALS: BP 124/86
[2023-10-23 16:30] VITALS: BP 127/92
[2023-10-23 16:37] VITALS: BP 127/92
== END 2023-10-23 16:45 | disposition home or self-care (01) | DRG 156 ==
LOC: ED 15:29
PROC: 3E1B78Z Irrigation of Ear using Irrigating Substance, Via Natural or Artificial Opening (ICD-10-PCS; principal; 2023-10-23)
DX: H61.21 Impacted cerumen, right ear (principal); E11.9 Type 2 diabetes mellitus without complications; Z79.84 Long term (current) use of oral hypoglycemic drugs